=== PATIENT | female | born 1955 | race Caucasian/White ===

== ENCOUNTER 2022-09-18 11:52 | Observation (INO) | payer MEDICARE ==
[2022-09-18] VITALS (18 sets, daily range): BP systolic 154–185; BP diastolic 6–88
[~2022-09-18] VITALS: Ht 157.5 cm; Wt 69.0 kg
--- NOTE | 2022-09-18 11:58 | NUR ---
PATIENT TO ROOM 8
[2022-09-18] MEDS ORDERED: KLONOPIN1 MG PO (12:08)
--- NOTE | 2022-09-18 12:34 | NUR ---
Reassessment of patient completed. No distress noted. VSS, CALL LIGHT IN REACH, HAS NO COMPLAINTS AT THIS TIME, AT BEDSIDE.
[2022-09-18 12:59] LABS: BASO% 0.5 % (0-3); HEMATOCRIT 45.2 % (37.0-47.0); HEMOGLOBIN 14.8 g/dl (12.0-16.0); IMMATURE GRANULOCYTES 0.2 % (0.0-5.0); MEAN CORPUSCULAR HGB 31.1 pG CALC (26.0-32.0); MEAN CORPUSCULAR HGB CONC 32.7 g/dL CAL (32.0-36.0); MONO% 12.1 % (2-13); NEUT# 1.5 thou/uL (2.00-7.15); NEUT% 37.2 % (42-76); RED BLOOD COUNT 4.76 mill/uL (4.20-5.60); RED CELL DISTRI WIDTH 12.5 % (11.5-15.5)
[2022-09-18 13:15] LABS: ALBUMIN 4.5 g/dL (3.2-5.0); ALKALINE PHOSPHATASE 54 u/l (38-126); ANION GAP 11 (6-22 (CALC)); BILIRUBIN, TOTAL 0.7 mg/dL (0.02-1.3); BUN 10 mg/dL (8-23); BUN/CREATININE RATIO 13 (12-20 (CALC)); CARBON DIOXIDE 27 mmol/l (22-30); CHLORIDE 104 mmol/l (95-108); CREATININE 0.8 mg/dL (0.5-1.0); GFR FOR AFR.AMER. > 60 ML/MIN (>=60 (CALC)); GFR OTHER RACES > 60 ML/MIN (>=60 (CALC)); POTASSIUM 3.9 mmol/l (3.5-5.1); SGOT/AST 35 u/l (9-36); SODIUM 139 mmol/l (137-146); TOTAL PROTEIN 7.4 g/dL (6.3-8.2)
--- NOTE | 2022-09-18 13:34 | NUR ---
Reassessment of patient completed. No distress noted. CALL LIGHT IN REACH, FAMILY AT BEDSIDE.
--- NOTE | 2022-09-18 14:55 | NUR ---
CALLED TO ROOM, PT C/O (R) LOWER ARM/HAND FEELING NUMBNESS, SWELLING IN HAND, DECREASED SENSATION APPROX 5-10 MIN, GOOD RADIAL PULSE, CAP REFILL <3, MEND DONE WNL, READJUSTED PT ARM, WILL ADISED PROVIDER.
--- NOTE | 2022-09-18 16:32 | NUR ---
Reassessment of patient completed. No distress noted. CALL LIGHT IN REACH, STILL STATING NOT FEELING WELL.
--- NOTE | 2022-09-18 16:33 | NUR ---
TRIED TO CALL REPORT PUT ON HOLD 10+ MIN.
--- NOTE | 2022-09-18 17:41 | NUR ---
CALLED TO [facility] FOR REPORT, MARILYN ADVISED NURSE IN ROOM WITH CARDIOLOGY CONSULT, UNABLE TO GIVE TIME WOULD CALL BACK FOR REPORT.
--- NOTE | 2022-09-18 17:59 | NUR ---
REPORT CALLED TO NISREEN NURSE FOR [facility] ROOM 264, PT TO ROOM VIA STRETCHER, VSS ALL BELONGINGS SENT WITH PT, SENT ON TELE #[id number].
--- NOTE | 2022-09-18 18:15 | NUR ---
PT TO [facility] FROM ER VIA W/C, REPORT RECIEVED. PT IS ALERT AND ORIENTED. PT HAS NO C/O PAIN AT THIS TIME. TELE ON WITH ALL LEADS ATTACHED. IV SITE # 20 TO THE RAC CLEAN AND INTACT, SL. PT LUNGS CLEAR. ABD SOFT AND BS ACTIVE. PT SKIN CLEAN AND INTACT. PT HAS CALL LIGHT WITHIN REACH AND SAFETY MEASURES IN PLACE.
--- NOTE | 2022-09-18 20:00 | NUR ---
PATIENT SITTING ON THE SIDE OF THE BED EATING HER DINNER. AWAKE ALERT AND ORIENTEDX3. PATIENT DENIES ANY CHEST PAIN AT THIS TIME BUT C/O SOME DIZZINESS AND LIGHTHEADEDNESS. PATIENT INSTRUCTED TO [facility] FOR ASSIST WHEN GETTING OOB. PATIENT WITH TELE MONITOR IN PLACE-LAST READING WAS [id number]. LAST TROP AT 1800 WAS NEG-0.012. SALINE LOCK TO RAC INTACT AND HEALTHY WITH GOOD BLOOD RETURN. LUNGS ARE CLEAR. ABD IS SOFT WITH ACTIVE BS. URINE SPEC OBTAINED AND SENT TO LAB. NO PERIPHERAL EDEMA NOTED. PULSES ARE PALPABLE. CALL LIGHT IN REACH. SAFETY PRECAUTIONS REINFORCED. CALL LIGHT IN REACH. WILL CONT TO MONITOR.
[2022-09-18 20:02] LABS: URINE BILIRUBIN - DIPSTICK NEGATIVE (NEGATIVE); URINE BLOOD DIPSTICK NEGATIVE (NEGATIVE); URINE COLOR YELLOW; URINE GLUCOSE - DIPSTICK NEGATIVE (NEGATIVE); URINE KETONE Negative (NEGATIVE); URINE NITRITE - DIPSTICK NEGATIVE (Negative); URINE PH 6.5 (4.5-8.0); URINE PROTEIN - DIPSTICK NEGATIVE (NEG-TRACE); URINE UROBILINOGEN - DIPSTICK 0.2 E.U./dL (0.2)
[2022-09-18 20:03] LABS: URINE LEUK ESTERASE NEGATIVE (NEGATIVE)
--- NOTE | 2022-09-18 23:00 | NUR ---
PATIENT RESTING IN BED WITH VISITOR AT BEDSIDE. ORTHOSTATIC VS DONE AND CHARTED. MEDICATED WITH KLONOPIN 1MG PO FOR ANXIETY/SLEEP. CALL LIGHT IN REACH. WILL CONT TO MONITOR.
--- NOTE | 2022-09-19 01:22 | NUR ---
resting in bed-trop at midnight neg. will cont to monitor.
[2022-09-19 04:01] VITALS: BP 134/66
--- NOTE | 2022-09-19 04:09 | NUR ---
PATIENT RESTING IN BED AT THIS TIME WITH EYES CLOSED. RESPS ARE EVEN AND UNLABORED. TELE MONITOR IN PLACE. SALINE LOCK TO RAC INTACT. CALL LIGHT IN REACH. WILL CONT TO MONITOR.
[2022-09-19 05:32] LABS: CHOLESTEROL HDL RATIO 3.8 (<4.4 (CALC)); MAGNESIUM 2.1 mg/dL (1.6-2.3)
[2022-09-19 06:35] VITALS: BP 123/59
--- NOTE | 2022-09-19 08:00 | NUR ---
PT SITTING UP ON SIDE OF BED EATING BREAKFAST; ALERT AND ORIENTED X3. PT HAS NO C/O PAIN AT THIS TIME. TELE ON WITH ALL LEADS ATTACHED. IV SITE TO SYED MTZ AND CHERRY JESUS. PT AMBULATES TO BATHROOM FOR ALL TOILETING NEEDS. PT HAS CALL LIGHT WIHTIN REACH AND ALL SAFETY MEASURES IN PLACE AT THIS TIME.
[2022-09-19 10:42] VITALS: BP 133/70
[2022-09-19] MEDS ORDERED: ASPIRIN ADULT L81 M2 PO (11:17)
--- NOTE | 2022-09-19 12:05 | NUR ---
PT SITTING UP ON SIDE OF BED, ALERT AND ORIENTED. PT HAS NO C/O PAIN. PT HAS NO CHANGE IN STATUS AT THIS TIME. PT HAS CALL LIGHT Giferent REACH.
--- NOTE | 2022-09-19 12:21 | NUR ---
Discharge instructions given. Patient verbalizes understanding of same. Discharged in stable condition via Wheelchair to Home with spouse. All belongings sent with pt.
== END 2022-09-19 12:30 | disposition home or self-care (01) ==
LOC: ED 11:52 → MS2 14:40
PROVIDERS: Nurse Practitioner; ADMIT Internal Medicine; ATTEND Internal Medicine
DX: R07.9 Chest pain, unspecified (principal); R01.1 Cardiac murmur, unspecified; F41.0 Panic disorder [episodic paroxysmal anxiety]
CPT/HCPCS: J1650

== ENCOUNTER 2023-03-28 20:40 | Emergency (ER) | payer MEDICARE ==
[2023-03-28] VITALS (14 sets, daily range): BP systolic 152–201; BP diastolic 74–93
[~2023-03-28] VITALS: Ht 157.5 cm; Wt 68.0 kg
[~2023-03-28 20:40] MED LIST: ASPIRIN ADULT L81 M2 PO; KLONOPIN1 MG PO
[2023-03-28 21:22] LABS: BASO% 0.6 % (0-3); EOS% 2.3 % (0-8); HEMATOCRIT 44.8 % (37.0-47.0); HEMOGLOBIN 14.8 g/dl (12.0-16.0); IMMATURE GRANULOCYTES 0.2 % (0.0-5.0); LYMPH% 49.2 % (15-41); MEAN CELL VOLUME 93.9 fL CALC (80.0-100.0); MONO% 11.1 % (2-13); NEUT# 2.27 thou/uL (2.00-7.15); NEUT% 36.6 % (42-76); RED BLOOD COUNT 4.77 mill/uL (4.20-5.60); RED CELL DISTRI WIDTH 12.4 % (11.5-15.5)
[2023-03-28 21:31] LABS: ALBUMIN 4.7 g/dL (3.2-5.0); ALKALINE PHOSPHATASE 70 u/l (38-126); ANION GAP 12 (6-22 (CALC)); BUN 11 mg/dL (8-23); BUN/CREATININE RATIO 15 (12-20 (CALC)); CARBON DIOXIDE 27 mmol/l (22-30); CHLORIDE 102 mmol/l (95-108); CREATININE 0.7 mg/dL (0.5-1.0); GFR FOR AFR.AMER. > 60 ML/MIN (>=60 (CALC)); GFR OTHER RACES > 60 ML/MIN (>=60 (CALC)); POTASSIUM 3.6 mmol/l (3.5-5.1); SGOT/AST 53 u/l (9-36); SODIUM 138 mmol/l (137-146); TOTAL PROTEIN 7.5 g/dL (6.3-8.2)
[2023-03-28 21:32] LABS: BILIRUBIN, TOTAL 0.4 mg/dL (0.02-1.3)
[2023-03-28 21:41] LABS: PROTHROMBIN TIME 9.2 SECONDS (9.0-12.5)
[2023-03-29] VITALS: BP 155/69
[2023-03-29 00:15] VITALS: BP 154/71
[2023-03-29 00:17] VITALS: BP 154/71
== END 2023-03-29 00:31 | disposition home or self-care (01) ==
LOC: ED 20:40
PROVIDERS: Internal Medicine
DX: R07.9 Chest pain, unspecified (principal); I10 Essential (primary) hypertension; E07.9 Disorder of thyroid, unspecified